=== PATIENT | male | born 1985 | race Caucasian/White ===

== ENCOUNTER 2016-07-14 15:23 | Day surgery (SDC) | payer OTHER ==
[2016-07-14] VITALS (12 sets, daily range): BP systolic 89–118; BP diastolic 46–74; PULSE 56–80; RESP 10–24; Ht 167.6 cm; Wt 75.0 kg
[~2016-07-14] VITALS: Ht 167.6 cm; Wt 75.0 kg
[2016-07-14] MEDS ORDERED: LIDOCAINE 1% (MDV) 20 ML INJ SC ONE (16:30)
[2016-07-14] MEDS ORDERED: POVIDONE IODINE 10% 28.4 GM OINT TOP ONE (16:30)
--- NOTE | 2016-07-14 16:39 | ERA ---
ER Documentation Chief Complaint Date/Time DATE: 07/14/16 TIME: 16:37 Chief Complaint PENIS FORESKIN LACERATION FROM SEXUAL ACTIVITY HPI This a 31-year-old male who is attempting to have sex with his significant other but he says she was not lubricated enough and he tried to force his penis into the vagina which resulted in some tear to the foreskin. The patient says he felt a sharp pain and withdrew and noticed a tearing bleeding. Patient was seen at an outside urgent care in [place] and was transferred here for higher level of care. Patient has no penile shaft injury or fracture or swelling. He has no other complaints. ROS All systems reviewed and are negative except as per history of present illness. PMhx/Soc Medical and Surgical Hx: pt denies Medical Hx, pt denies Surgical Hx History of Surgery: No Anesthesia Reaction: No Hx Neurological Disorder: No Hx Respiratory Disorders: No Hx Cardiac Disorders: No Hx Psychiatric Problems: No Hx Miscellaneous Medical Probl: No Hx Alcohol Use: No Hx Substance Use: No Hx Tobacco Use: No Smoking Status: Never smoker FmHx Family History: No coronary disease Physical Exam Vitals Vital Signs Date Time Temp Pulse Resp B/P Pulse Ox O2 Delivery O2 Flow Rate FiO2 07/14/16 15:25 98.5 65 18 135/75 98 Physical Exam Const: Well-developed, well-nourished Head: Atraumatic, normocephalic Eyes: Normal Conjunctiva, PERRLA, EOMI, normal sclera, no nystagmus ENT: Normal External Ears, Nose and Mouth, moist mucus membranes. Neck: Full range of motion. No meningismus, no lymphadenopathy. Resp: Clear to auscultation bilaterally, no wheezing, rhonchi, rales Cardio: Regular rate and rhythm, no murmurs, S1 S2 present Abd: Soft, non tender x 4, non distended. Normal bowel sounds, no guarding or rebound, no pulsitile abdominal masses or bruits. The patient's foreskin has 2 lacerations of the 6 and 12 o'clock position Skin: No petechiae or rashes, no ecchymosis , no maculopapular rash Back: No midline or flank tenderness Ext: No cyanosis, or edema, FROM x 4, normal inspection, neurovascularly intact x 4 Neur: Awake and alert, STR 5/5 x 4, sensation intact x 4, no focal findings, cerebellum intact Psych: Normal Mood and Affect Results 24 hrs Current Medications Medications (Trade) Dose Ordered Sig/Rosa Route PRN Reason Start Time Stop Time Status Last Admin Dose Admin Lidocaine (Xylocaine 1% (Mdv) 20 ml) 20 ml ONCE ONCE SC 07/14/16 16:30 4 16:31 DC Povidone Iodine (Povidone-Iodine) 1 applic ONCE ONCE TOP 07/14/16 16:30 07/14/16 16:31 DC Procedures/MDM Case was reviewed with Dr. Torrez and he was kind enough to come into the ER to see the patient. The patient was going to be sutured and sent home however the patient has requested to have a circumcision instead. The patient be held in the emergency room for a few more hours because the patient had eaten recently. The patient will go from the emergency room to the operating room where he will receive a circumcision and then be discharged home straight from the operating room Departure Diagnosis: Primary Impression: Laceration of penis Qualified Code: S31.21XA - Laceration of penis, initial encounter Condition: Stable JAIRO MARCUS DO Jul 14, 2016 16:39
[2016-07-14] MEDS ORDERED: PROPOFOL 20 ML ONE (17:51)
[2016-07-14] MEDS ORDERED: LIDOCAINE 2% (SDV) 5 ML INJ ONE (17:51)
[2016-07-14] MEDS ORDERED: SUCCINYLCHOLINE CHLORIDE 100 MG/5 ML SYG IV ONE (17:51)
[2016-07-14] MEDS ORDERED: FENTAnyl 50 MCG/ML VIAL ONE (17:52)
[2016-07-14] MEDS ORDERED: CEFAZOLIN 1 GM INJ ONE (17:52)
[2016-07-14] MEDS ORDERED: MIDAZOLAM 1 MG/ML 2 ML INJ ONE (17:52)
[2016-07-14] MEDS ORDERED: BUPIVACAINE 0.25% (MPF) 10 ML 10 ML VIAL ONE (17:54)
[2016-07-14] MEDS ORDERED: HYDROmorphONE (0.2 MG/ML) 10ML SYG IV PRN ×2 (18:00)
[2016-07-14] MEDS ORDERED: OXYCODONE/ACETAMINOPHEN (5/325) TAB PO PRN ×2 (18:00)
[2016-07-14] MEDS ORDERED: ONDANSETRON 4 MG INJ IV PRN (18:00)
[2016-07-14] MEDS ORDERED: FENTAnyl 50 MCG/ML VIAL IV PRN (18:00)
[2016-07-14] MEDS ORDERED: DIPHENHYDRAMINE 50 MG INJ IV PRN (18:00)
[2016-07-14] MEDS ORDERED: PROCHLORPERAZINE 10 MG INJ IV PRN (18:00)
[2016-07-14] MEDS ORDERED: MEPERIDINE 25 MG INJ IV PRN (18:00)
[2016-07-14] MEDS ORDERED: DEXAMETHASONE 4 MG/ML 1 ML INJ ONE (18:22)
[2016-07-14] MEDS ORDERED: ONDANSETRON 4 MG INJ ONE (18:22)
[2016-07-14] MEDS ORDERED: BUPIVACAINE 0.25% (MPF) 30 ML INJ INJ ONE (18:30)
[2016-07-14] MEDS ORDERED: BUPIVACAINE 0.25% (MPF) 10 ML 10 ML VIAL INJ ONE (18:30)
[2016-07-14] MEDS ORDERED: KETOROLAC 30 MG INJ ONE (18:37)
[2016-07-14] MEDS ORDERED: BUPIVACAINE 0.25% (MPF) 30 ML INJ ONE (18:38)
[2016-07-14] MEDS ORDERED: OXYCODONE/ACETAMINOPHEN (5/325) TAB ONE (19:55)
[2016-07-15] MEDS ORDERED: IBUP-1542 PO (10:47)
--- NOTE | 2016-07-23 11:27 | OPR ---
DATE OF OPERATION: 07/14/2016 PREOPERATIVE DIAGNOSIS: Traumatic avulsion of foreskin. POSTOPERATIVE DIAGNOSIS: Traumatic avulsion of foreskin. OPERATION PERFORMED: Circumcision. ANESTHESIA: General OPERATING SURGEON: Dr. Juaquin Torrez DESCRIPTION OF PROCEDURE: The patient was taken to the operating room. After smooth induction of a nesthetic, he was prepped and draped in a sterile fashion, placed in lithotomy position. There were several tears in the foreskin which made it impossible to do any kind of repair. Fortunately, the tears were only in the foreskin. A dorsal slit was made and the redundant foreskin was removed. He mostasis was then obtained with electrocautery and the circumcision was then repaired in interrupted chromic sutures. Sterile dressing was applied. The patient tolerated the procedure well. He left the OR in good condition. Dictated By: JUAQUIN LAWSON/AYLEEN Conf#: [id number] DID#: [id number]
== END 2016-07-14 20:24 | disposition home or self-care (01) ==
LOC: E/R 15:23 → SDS 17:20
PROVIDERS: ATTEND Urology
DX: S31.21XA Laceration without foreign body of penis, initial encounter (principal); X58.XXXA Exposure to other specified factors, initial encounter; Y92.89 Other specified places as the place of occurrence of the external cause
CPT/HCPCS: 54161; 99282; J0330; J0690; J1100; J1885; J2250; J2405; J3010

== ENCOUNTER 2016-07-15 09:51 | Emergency (ER) | payer OTHER ==
[~2016-07-15] VITALS: Ht 167.6 cm; Wt 74.0 kg
[2016-07-15 09:56] VITALS: Ht 167.6 cm; Wt 74.0 kg
[2016-07-15] MEDS ORDERED: IBUP-1542 PO (10:47)
--- NOTE | 2016-07-15 11:04 | ERD ---
ER Documentation Chief Complaint Date/Time DATE: 07/15/16 TIME: 11:00 Chief Complaint still bleeding from surgical site from yesterday HPI This is a 31-year-old male that presents to the ER complaining of bleeding from his penis after circumcision yesterday. Patient denies any fevers or chills. He denies any discharge from the area. He denies any urinary frequency or dysuria. ROS 12 point review of systems was done, all negative except per HPI. Medications Home Meds Active Scripts Ibuprofen* (Motrin*) 600 Mg Tab, 600 MG PO Q6, #30 TAB Prov:NELLY FERNANDO 07/15/16 Allergies Allergies: Coded Allergies: No Known Allergy (Unverified , 07/14/16) PMhx/Soc History of Surgery: No Anesthesia Reaction: No Hx Neurological Disorder: No Hx Respiratory Disorders: No Hx Cardiac Disorders: No Hx Psychiatric Problems: No Hx Miscellaneous Medical Probl: No Hx Alcohol Use: No Hx Substance Use: No Hx Tobacco Use: No Physical Exam Vitals Vital Signs Date Time Temp Pulse Resp B/P Pulse Ox O2 Delivery O2 Flow Rate FiO2 07/15/16 09:56 98.3 68 18 116/60 99 Physical Exam GENERAL: The patient is well developed and appropriate for usual state of health , in no apparent distress. HEENT: Atraumatic. CHEST: Clear to auscultation bilaterally. There are no rales, wheezes or rhonchi. HEART: Regular rate and rhythm. No murmurs, clicks, rubs or gallops. : Patient has a small amount of bleeding at surgical site. No discharge. NEURO: Alert and oriented. SKIN: The skin is warm and dry. Procedures/MDM This is a 31-year-old male that presents to the ER with penile bleeding status post circumcision yesterday. I spoke to Dr. Torrez, who suggested to address area with [place]. Patient already has Surgicel in place. Minimal bleeding is expected at this time. There is no evidence of infection. Patient needs to follow-up with his primary care doctor within 1-2 days return to ER sooner if symptoms worsen. My medical decision making was shared with the patient he understands and agrees with plan. Departure Diagnosis: Primary Impression: Encounter for wound re-check Condition: Stable Patient Instructions: Wound Care Referrals: BELINDA COLLADO (PCP) Additional Instructions: Call your primary care doctor TOMORROW for an appointment during the next 1-2 days.See the doctor sooner or return here if your condition worsens before your appointment time. NELLY FERNANDO Jul 15, 2016 11:04
== END 2016-07-15 10:54 | disposition home or self-care (01) ==
LOC: FTE 09:51
DX: N99.820 Postprocedural hemorrhage of a genitourinary system organ or structure following a genitourinary system procedure (principal); Z48.01 Encounter for change or removal of surgical wound dressing
CPT/HCPCS: 99283